=== PATIENT | female | born 1975 | race Caucasian/White ===

== ENCOUNTER 2020-05-12 05:35 | Emergency (ER) | payer OTHER ==
[2020-05-12 06:09] VITALS: BP 135/79; PULSE 78; TEMP 98.4; BMI 25.4
[2020-05-12 07:13] LABS: BASO % 1.4 % (0-2.0); EOS % 5.8 % (0-4.5); HEMATOCRIT 36.4 % (32.4-45.2); HEMOGLOBIN 11.9 GM/dL (10.7-15.3); LYMPH % 39.9 % (8-40); MCH 27.3 pg (25.7-33.7); MCHC 32.6 g/dl (32.0-36.0); MEAN CELL VOLUME 83.5 fl (80-96); MEAN PLT VOLUME 9.5 fl (7.5-11.1); MONO % 6.3 % (3.8-10.2); NEUT % 46.6 % (42.8-82.8); PLATELET COUNT 294 K/MM3 (134-434); RBC 4.35 M/mm3 (3.60-5.2); WHITE BLOOD COUNT 8.8 K/mm3 (4.0-10.0)
[2020-05-12 07:20] LABS: POTASSIUM 3.3 mmol/L (3.5-5.1)
[2020-05-12 07:23] LABS: ALBUMIN 3.6 g/dl (3.4-5.0); BLOOD UREA NITROGEN 10.2 mg/dL (7-18); CALCIUM 8.5 mg/dL (8.5-10.1)
[2020-05-12 07:27] LABS: CREATININE 0.8 mg/dL (0.55-1.3)
[2020-05-12 07:28] LABS: BILIRUBIN,TOTAL 0.1 mg/dL (0.2-1); TOT PROT 6.7 g/dl (6.4-8.2)
[2020-05-12 07:43] LABS: HCG,QUALITATIVE URINE Negative
[2020-05-12 08:10] LABS: URINE APPEARANCE CLOUDY; URINE COLOR YELLOW; URINE GLUCOSE (UA) NEGATIVE (NEGATIVE)
[2020-05-12 08:11] LABS: URINE BILIRUBIN SMALL (NEGATIVE); URINE KETONE TRACE (NEGATIVE); URINE LEUK ESTERASE NEGATIVE (NEGATIVE); URINE NITRITE NEGATIVE (NEGATIVE); URINE PROTEIN 1+ (NEGATIVE)
[2020-05-12 08:12] LABS: EPI CELLS 112.6 /uL (0-25.1); HYALINE CASTS 7.45 /uL (0-3.1); URINE BACTERIA 1395.7 /uL (0-1359); URINE WBC 28.2 /uL (0-25.8)
== END 2020-05-12 09:51 | disposition home or self-care (01) ==
LOC: JER 05:35
DX: N89.8 Other specified noninflammatory disorders of vagina (principal); N88.8 Other specified noninflammatory disorders of cervix uteri
CPT/HCPCS: 36415; 76830-TC; 80053; 81003; 84703; 85025; 87086; 99284-25

== ENCOUNTER 2024-02-15 00:04 | Inpatient (IN) | payer OTHER ==
[2024-02-15 00:21] VITALS: BMI 25.7
[2024-02-15] MEDS ORDERED: MAG HYDROX/AL HYDROX/SIMETH 30 ML UNIT-DOSE CUP PO PRN (02:00)
[2024-02-15] MEDS ORDERED: IBUPROFEN 400 MG TABLET (FP) PO PRN (02:00)
[2024-02-15] MEDS ORDERED: NALOXONE HCL 0.4 MG/ML VIAL IM PRN (02:00)
[2024-02-15] MEDS ORDERED: BENZONATATE 200 MG CAPSULE PO PRN (02:00)
[2024-02-15] MEDS ORDERED: NICOTINE POLACRILEX 2 MG GUM BUC PRN (02:00)
[2024-02-15] MEDS ORDERED: POLYETHYLENE GLYCOL (HEALTHYLAX) 3350 17 GM PACKET PO PRN (02:00)
[2024-02-15] MEDS ORDERED: guaiFENesin 600 MG TABLET.ER (FP) PO PRN (02:00)
[2024-02-15] MEDS ORDERED: MAGNESIUM HYDROX 2400MG/30ML ORAL SUSPENSION 30 ML CUP PO PRN (02:00)
[2024-02-15] MEDS ORDERED: BISMUTH SUBSALICYLATE 524 MG/30 ML PO PRN (02:00)
[2024-02-15] MEDS ORDERED: NALOXONE (NARCAN) HCL 4 MG/0.1 ML SPRAY NS PRN (02:00)
[2024-02-15] MEDS ORDERED: DICYCLOMINE HCL 10 MG CAPSULE PO PRN (02:00)
[2024-02-15] MEDS ORDERED: LOPERAMIDE HCL 2 MG CAPSULE PO PRN (02:00)
[2024-02-15] MEDS ORDERED: BENZOCAINE/MENTHOL (CHLORASEPTIC ) LOZENGE MM PRN (02:00)
[2024-02-15] MEDS: ALBUTEROL SO4 HFA INHALER IH SCH (06:46)
[2024-02-15] MEDS: PRENATAL VITAMINS W/ FOLIC ACID TABLET (FP) PO SCH (10:16)
[2024-02-15] MEDS: NICOTINE 21 MG/24 HOURS TOPICAL PATCH TD SCH (10:16)
[2024-02-15] MEDS: METHOCARBAMOL 500 MG TABLET PO PRN (10:17)
[2024-02-15] MEDS: methaDONE HCL 10 MG TABLET (FOR DETOX USE ONLY) PO ONE (10:25)
[2024-02-15] MEDS: BISACODYL 5 MG TABLET.DR (FP) PO ONE (11:05)
[2024-02-15] MEDS: cloNIDine HCL 0.1 MG TABLET PO PRN (13:11)
[2024-02-15] MEDS: ONDANSETRON *ODT* 4 MG TABLET SL PRN (14:35)
[2024-02-15] MEDS: MELATONIN 5 MG TABLETS PO SCH (21:27)
[2024-02-15] MEDS: DOCUSATE SODIUM 100 MG CAPSULE (FP) PO SCH (21:27)
[2024-02-15] MEDS: IBUPROFEN 600 MG TABLET (FP) PO PRN (21:27)
[2024-02-15] MEDS: THIAMINE 100 MG TABLET PO SCH (21:27)
[2024-02-16] MEDS: ACETAMINOPHEN 325 MG TABLET (FP) PO PRN (10:03)
[2024-02-16 10:16] LABS: HEMATOCRIT 40.6 % (32.4-45.2); HEMOGLOBIN 13.9 GM/dL (10.7-15.3); MCHC 34.3 g/dl (32.0-36.0); MEAN CELL VOLUME 87.5 fl (80-96); MEAN PLT VOLUME 8.9 fl (7.5-11.1); PLATELET COUNT 289 10^3/uL (134-434); RBC 4.63 M/mm3 (3.60-5.2); RDW 14.2 % (11.6-15.6); WHITE BLOOD COUNT 8.5 K/mm3 (4.0-10.0)
[2024-02-16 11:24] LABS: POTASSIUM 4.1 mmol/L (3.5-5.1)
[2024-02-16 11:28] LABS: ALBUMIN 3.8 g/dl (3.4-5.0); BLOOD UREA NITROGEN 7.9 mg/dL (7-18); CALCIUM 9.3 mg/dL (8.5-10.1)
[2024-02-16 11:31] LABS: CREATININE 0.7 mg/dL (0.55-1.3)
[2024-02-16 11:33] LABS: BILIRUBIN,TOTAL 0.5 mg/dL (0.2-1); TOT PROT 6.8 g/dl (6.4-8.2)
[2024-02-16] MEDS: TRIMETHOBENZAMIDE HCL 200MG/2ML INJ IM ONE (11:43)
[2024-02-16] MEDS: hydrOXYzine PAMOATE 25 MG CAPSULE (FP) PO PRN (22:11)
[2024-02-17 09:34] VITALS: BP 146/93; PULSE 80; RESP 18; TEMP 98.3
[2024-02-17] MEDS: methaDONE HCL 10 MG TABLET (FOR DETOX USE ONLY) PO ONE (10:21)
[2024-02-19] MEDS ORDERED: methaDONE HCL 10 MG TABLET (FOR DETOX USE ONLY) PO ONE (10:00)
== END 2024-02-17 09:48 | disposition home or self-care (01) | DRG 773 ==
LOC: YASAS 00:04 → Y3N 02:56
PROVIDERS: ADMIT Allergy & Immunology; ATTEND Surgery
PROC: HZ2ZZZZ Detoxification Services for Substance Abuse Treatment (ICD-10-PCS; principal; 2024-02-15)
DX: F11.23 Opioid dependence with withdrawal (principal); F17.210 Nicotine dependence, cigarettes, uncomplicated; J45.909 Unspecified asthma, uncomplicated
CPT/HCPCS: 36415; 80053; 80305; 80307; 81025; 85027; 86780; 93005; 93010; Q0162